=== PATIENT | female | born 1950 | race Caucasian/White ===

== ENCOUNTER → 2020-04-20 12:31 | Outpatient (CLI) | payer MEDICARE, MEDICAID, SELFPAY ==
[2020-04-20 12:46] LABS: Anion Gap 10.1 mEq/L (5-15); Blood Urea Nitrogen 23 mg/dl (7-17); Calcium 10.2 mg/dl (8.4-10.2); Carbon Dioxide 30 mmol/L (22.0-30.0); Chloride 105 mmol/L (98-107); Estimated Glomerular Filt Rate 83 ml/min (>60); GFR (African American) 100 ML/MIN (>60); Glucose 96 mg/dl (74-100); Potassium 4.1 mmoL/L (3.5-5.1); Sodium 141 mmol/L (136-145)
== END ==
PROVIDERS: PCP Family Medicine; Visit Provider Family Medicine
DX: I25.10 Atherosclerotic heart disease of native coronary artery without angina pectoris (principal)
CPT/HCPCS: 80048

== ENCOUNTER → 2020-05-22 10:08 | Outpatient (CLI) | payer MEDICARE, MEDICAID, SELFPAY ==
--- NOTE | 2020-05-22 10:09 | CA_ITS ---
APPROVED REPORT Research Physicist: GABRIEL Laterality: Bilateral Indications: due f/u Risk Factors Hypertension: Hyperlipidemia PAD Smoking Doppler Spectral Velocity Analysis ECA (R) 133.90/12.50 cm/s ECA (L) 88.60/7.70 cm/s dICA (R) 117.00/21.00 cm/s dICA (L) 142.20/38.40 cm/s Marlene (R) 337.70/56.70 cm/s Marlene (L) 103.10/20.20 cm/s pICA (R) 278.70/63.80 cm/s pICA (L) 102.10/26.00 cm/s dCCA (R) 68.40/15.40 cm/s dCCA (L) 96.40/23.50 cm/s pCCA (R) 119.40/19.30 cm/s pCCA (L) 136.40/23.50 cm/s Vert (R) 41.20/11.80 cm/s Vert (L) 65.50/16.10 cm/s ICA/CCA 4.94 ICA/CCA 1.47 Findings Duplex evaluation demonstrates stenosis of the right proximal internal carotid artery in the range of 70-99% with PSV =140 cm/sec, EDV <100 cm/sec, and IC/CC Ratio <4.0(upper end of scale) Duplex evaluation demonstrates stenosis of the left proximal internal carotid artery in the range of 50-69% with PSV =140 cm/sec, EDV <100 cm/sec, and IC/CC Ratio <4.0. Conclusion Duplex evaluation demonstrates stenosis of the right proximal internal carotid artery in the range of 70-99% with PSV =140 cm/sec, EDV <100 cm/sec, and IC/CC Ratio <4.0(upper end of scale) Duplex evaluation demonstrates stenosis of the left proximal internal carotid artery in the range of 50-69% with PSV =140 cm/sec, EDV <100 cm/sec, and IC/CC Ratio <4.0. CTA MAY CONFIRM FINDINGS Electronically signed by : Vijay DeS ouza MD 05/22/2020 17:43:28
--- NOTE | 2020-05-22 10:41 | XR_ITS ---
PROCEDURE: XR CHEST 2V CLINICAL HISTORY: copd, tobacco, lung lesion, head and neck cancer Pain following injury COMPARISON: CR XR RIBS RT 2V from 05/22/2020 FINDINGS: The cardiomediastinal silhouette and pulmonary vascularity are within normal limits. Coronary artery stents are present . COPD/emphysematous changes noted with hyperinflation. No lobar consolidation or collapse. Multiple views are obtained of the right ribs showing no obvious displaced rib fracture. IMPRESSION: COPD. No acute finding. No displaced rib fracture apparent. If symptoms persist, consider follow-up exam in 7-[address] with 3D reformats. Dictated by: Vijay De Souza MD 05/22/2020 13:08 Vijay De Souza MD in [facility] 05/22/2020 13:08
== END ==
PROVIDERS: PCP Family Medicine; Visit Provider Physician Assistant
DX: R42 Dizziness and giddiness; G89.29 Other chronic pain; I65.23 Occlusion and stenosis of bilateral carotid arteries
CPT/HCPCS: 71046; 71100; 87070; 87077; 87186; 87205; 93880

== ENCOUNTER → 2020-06-15 15:13 | Outpatient (CLI) | payer MEDICARE, MEDICAID, SELFPAY | PROVIDERS: Visit Provider Family Medicine | DX: J15.0 Pneumonia due to Klebsiella pneumoniae (principal) | CPT/HCPCS: 87205 ==

== ENCOUNTER → 2020-09-28 09:54 | Outpatient (CLI) | payer MEDICARE, MEDICAID, SELFPAY ==
--- NOTE | 2020-09-28 10:01 | XR_ITS ---
PROCEDURE: XR CHEST PORTABLE CLINICAL HISTORY: COVID OUTPATIENT Cough, smoker COMPARISON: CR XR CHEST 2V from 05/22/2020 FINDINGS: Normal heart size. Coronary artery stents noted. COPD with emphysema. No lobar consolidation or collapse. Slight increased markings left lower lobe which may be due to atelectatic or fibrotic change. Surgical clips are present in the epigastric region. IMPRESSION: No acute findings. Dictated by: Vijay De Souza MD 09/28/2020 10:28 Vijay De Souza MD in [facility] 09/28/2020 10:28
== END ==
PROVIDERS: PCP Family Medicine; Visit Provider Family Medicine
DX: Z20.822 Contact with and (suspected) exposure to COVID-19 (principal)
CPT/HCPCS: 71045; U0003

== ENCOUNTER → 2020-11-08 14:37 | Outpatient (CLI) | payer MEDICARE, MEDICAID, SELFPAY ==
[2020-11-08 14:47] LABS: Basophils # 0.1 K/mm3 (0-0.2); Eosinophils # 0.1 K/mm3 (0.0-0.4); Eosinophils % 1.5 % (0.1-12.0); Hematocrit 46.9 % (37.0-47.0); Hemoglobin 15.4 g/dL (12.2-16.2); Lymphocytes # 0.9 K/mm3 (0.7-4.5); Lymphocytes % 13.4 % (10-50); Mean Corpuscular HGB Conc 32.8 g/dL (31.8-35.4); Mean Corpuscular Hemoglobin 33.1 pg (27.0-31.2); Mean Corpuscular Volume 100.8 fl (81-99); Mean Platelet Volume 7.5 fl (7.4-10.4); Monocytes # 0.4 K/mm3 (0.1-1.0); Monocytes % 6.3 % (1.7-9.3); Neutrophils # 5.1 K/mm3 (1.8-7.8); Neutrophils % 77.9 % (37.0-80.0); Platelet Count 336 K/mm3 (142-424); Red Blood Count 4.65 M/mm3 (4.20-5.40); Red Cell Distribution Width 14.8 % (11.5-17.5); White Blood Count 6.5 K/mm3 (4.8-10.8)
[2020-11-08 14:53] LABS: Alanine Aminotransferase 16 U/L (12-78); Albumin Level 4.7 g/dl (3.5-5.0); Albumin/Globulin Ratio 1.8 (1.1-1.8); Alkaline Phosphatase 80 U/L (38-126); Anion Gap 12.2 mEq/L (5-15); Aspartate Amino Transferase 31 U/L (14-36); Bilirubin,Total 0.4 mg/dl (0.2-1.3); Blood Urea Nitrogen 18 mg/dl (7-17); Calcium 10.1 mg/dl (8.4-10.2); Carbon Dioxide 27 mmol/L (22.0-30.0); Chloride 104 mmol/L (98-107); Cholesterol 319 mg/dl (140-200); Estimated Glomerular Filt Rate 55 ml/min (>60); GFR (African American) 67 ML/MIN (>60); Globulin 2.6 g/dL (1.3-3.2); Glucose 93 mg/dl (74-100); Lipase 177 U/L (23-300); Potassium 4.2 mmoL/L (3.5-5.1); Sodium 139 mmol/L (136-145); Total Protein,Serum 7.3 g/dl (6.3-8.2); Triglycerides 175 mg/dl (30-150); VLDL Cholesterol 35 mg/dL (0-40)
[2020-11-08 15:00] LABS: Chol/HDL Ratio 2.7 (1-3.5); HDL Cholesterol 117 mg/dl (40-60)
[2020-11-08 15:04] LABS: C-Reactive Protein 0.8 mg/L (0-4); Direct LDL Cholesterol 143.28 mg/dL (100-129)
[2020-11-08 15:11] LABS: Erythrocyte Sedimentation Rate 8 mm/hr (0-30)
[2020-11-08 15:12] LABS: 25-OH Vitamin D, Total < 12.8 ng/mL (30-100)
== END ==
PROVIDERS: Visit Provider Family Medicine
DX: E03.9 Hypothyroidism, unspecified (principal); M81.0 Age-related osteoporosis without current pathological fracture; I65.23 Occlusion and stenosis of bilateral carotid arteries; R20.0 Anesthesia of skin
CPT/HCPCS: 80053; 80061; 82306; 83690; 84436; 84443; 85025; 85651; 86140

== ENCOUNTER 2020-12-23 07:17 | Emergency (ER) | payer MEDICARE, MEDICAID, SELFPAY ==
[2020-12-23 07:19] VITALS: BP 156/80; PULSE 80; RESP 16; TEMP 36.8; O2SAT 98; BMI 18.3
--- NOTE | 2020-12-23 07:34 | XR_ITS ---
PROCEDURE INFORMATION: Exam: XR Lumbosacral Spine Exam date and time: 12/23/2020 7:34 AM Age: 70 years old Clinical indication: Low back pain TECHNIQUE: Imaging protocol: XR of the lumbosacral spine. Views: 2 or 3 views. COMPARISON: No relevant prior studies available. FINDINGS: Bones/joints: Normal. No acute fracture. Normal alignment. Soft tissues: Upper abdominal and pelvic clips. Aortoiliac grafts. IMPRESSION: 1. No acute osseous abnormalities. 2. Postsurgical changes above.
--- NOTE | 2020-12-23 08:02 | HMH.EDGENADL ---
ED Disposition Clinical Impression: Low back pain Qualifiers: Chronicity: acute Back pain laterality: bilateral Sciatica presence: without sciatica Qualified Code(s): M54.5 - Low back pain Disposition: Home, Self-Care Condition on Discharge: Good Instructions: DI for Low Back Pain Additional Instructions: Continue taking your Percocet as needed. See Dr. Price in the office tomorrow. Referrals: Chavo Price MD [Primary Care Provider] - - Critical Care Critical Care Time: No Attestation: On 12/23/20, the high probability of a clinically significant, sudden or life threatening deterioration of the following system(s) required my full and direct attention, intervention and personal management. The time I documented below is in addition to time spent performing reported procedures but includes the following listed in this critical care notation. Medical Decision Making - Mario Inquiry Pt receiving controlled substance: No Mario was queried for this patient: Yes Vital Signs: 12/23/20 07:19 Temperature 98.2 F Temperature Source Oral Pulse Rate [Radial] 80 Respiratory Rate 16 Blood Pressure [Right Arm] 156/80 H Blood Pressure Mean [Right Arm] 105 Blood Pressure Position [Right Arm] Sitting 02 Sat by Pulse Oximetry 98 Oxygen Delivery Method Room Air Orders (Tests/Meds): ED MEDICATIONS Discontinued Medications Generic Name Dose Route Start Last Admin Trade Name Freq PRN Reason Stop Dose Admin Dexamethasone Sodium Phosphate 8 mg 12/23/20 08:15 12/23/20 08:24 Dexamethasone 4mg/Ml 1ml Vial IM 12/23/20 08:16 8 mg ONCE ONE Administration Ketorolac Tromethamine 30 mg 12/23/20 08:14 12/23/20 08:24 Ketorolac 60mg/2ml Vial IM 12/23/20 08:15 30 mg ONCE ONE Administration - Radiology Data #1 Image(s): L-Spine Image Reviewed: Yes I reviewed the patient's radiology image, Yes I have reviewed radiologist's interpretation PROCEDURE INFORMATION: Exam: XR Lumbosacral Spine Exam date and time: 12/23/2020 7:34 AM Age: 70 years old Clinical indication: Low back pain TECHNIQUE: Imaging protocol: XR of the lumbosacral spine. Views: 2 or 3 views. COMPARISON: No relevant prior studies available. FINDINGS: Bones/joints: Normal. No acute fracture. Normal alignment. Soft tissues: Upper abdominal and pelvic clips. Aortoiliac grafts. IMPRESSION: 1. No acute osseous abnormalities. 2. Postsurgical changes above. Medical Decision Narrative: Per Dr. Constantino, patient to be seen by Dr. Price in the office tomorrow. General Adult HPI - General Chief complaint: Back Pain/Injury Stated complaint: pain in back Time Seen by Provider: 12/23/20 08:02 Mode of Arrival: Ambulatory Limitations: No Limitations Description of Symptoms (Recalled from ER Triage Doc. by RN): to ed per pvt car with c/o rt lower back pain starting 12/08 after lifting 24 case of water at [employer]. states sudden onset of pain, but progressively getting worse. denies radiation of pain. pt states taking percocet at home with no relief of symptoms. denies incontinence of bladder or bowel - History of Present Illness HPI narrative: States that she injured her back 2 weeks ago lifting a case of water at [employer]. Complains of diffuse lower lumbar pain. Has chronic pain in her legs which is unchanged. No new numbness or weakness of the legs. No numbness of the groin. No loss of bowel or bladder control. She has Percocet at home, took 3 tablets yesterday the pain is not improving. She has not tried taking any anti-inflammatories. She has 7 Percocet left. She says she called Dr. Srivastava on Thursday, 2 days ago, and he told her to come to the emergency department. She drove herself to the emergency department. - Related Data Home Medications Medication Instructions Recorded Confirmed aspirin 81 mg tablet,delayed 81 mg PO QDAY 09/09/17 12/07/20
[2020-12-23 08:39] VITALS: BP 156/80; PULSE 80; RESP 16; TEMP 36.8; O2SAT 98
== END 2020-12-23 08:39 | disposition home or self-care (01) ==
PROVIDERS: Emergency Provider Emergency Medicine; PCP Family Medicine
DX: M54.5 Low back pain (principal); X50.0XXA Overexertion from strenuous movement or load, initial encounter; I25.10 Atherosclerotic heart disease of native coronary artery without angina pectoris; E03.9 Hypothyroidism, unspecified; E78.5 Hyperlipidemia, unspecified; I10 Essential (primary) hypertension; E11.9 Type 2 diabetes mellitus without complications; Z79.899 Other long term (current) drug therapy; F17.210 Nicotine dependence, cigarettes, uncomplicated
CPT/HCPCS: 72100; 96372; 99282

== ENCOUNTER 2021-05-12 10:26 | Emergency (ER) | payer MEDICARE, MEDICAID, SELFPAY ==
[2021-05-12 10:27] VITALS: BP 201/76; PULSE 49; RESP 16; TEMP 36.4; O2SAT 98; BMI 16.2
--- NOTE | 2021-05-12 10:42 | XR_ITS ---
PROCEDURE INFORMATION: Exam: XR Left Shoulder Exam date and time: 05/12/2021 10:42 AM Age: 71 years old Clinical indication: Pain and injury or trauma; Sprain or strain; Patient HX: Fall with left shoulder pain TECHNIQUE: Imaging protocol: XR Left shoulder. Views: 2 or more views. COMPARISON: CR XR HUMERUS LT 05/12/2021 11:20 AM FINDINGS: Bones/joints: There is no evidence of acute cortical disruption or dislocation. The glenohumeral articulation is intact. There is mild elevation of the clavicle relative to the acromion process by approximately 1.3 cm. Soft tissues: Normal. IMPRESSION: 1. No acute fracture. 2. Elevation of the distal clavicle relative to the acromion process. AC joint dislocation or instability is not excluded. Clinical correlation is recommended.
--- NOTE | 2021-05-12 10:42 | XR_ITS ---
PROCEDURE INFORMATION: Exam: XR Left Humerus Exam date and time: 05/12/2021 10:42 AM Age: 71 years old Clinical indication: Injury or trauma; Sprain or strain; Humerus; Patient HX: Fall with left upper arm pain TECHNIQUE: Imaging protocol: XR Left humerus. Views: 2 or more views. COMPARISON: CR XR CHEST PORTABLE 09/28/2020 10:20 AM FINDINGS: Bones/joints: Normal. Soft tissues: Normal. IMPRESSION: No acute findings.
--- NOTE | 2021-05-12 11:01 | HMH.EDEXTP ---
ED Disposition Clinical Impression: Sprain of left shoulder Disposition: Home, Self-Care Condition on Discharge: Good Instructions: Sprain Prescriptions: Hydrocod/Acet 5/325 mg [Buchanan 5/325mg tablet] 1 tab PO Q6HP PRN #7 tab PRN Reason: Moderate Pain Transmission Status: Received by [email or web address] Referrals: Chavo Price MD [Primary Care Provider] - Stuart Peraza MD [Staff Physician] - - Critical Care Critical Care Time: No Attestation: On 05/12/21, the high probability of a clinically significant, sudden or life threatening deterioration of the following system(s) required my full and direct attention, intervention and personal management. The time I documented below is in addition to time spent performing reported procedures but includes the following listed in this critical care notation. Medical Decision Making - Medical Records Medical records reviewed: Yes: I reviewed the patient's medical records. - Mario Inquiry Pt receiving controlled substance: Yes Mario was queried for this patient: No Risks and benefits of using a controlled substance: were discussed with pt by me Vital Signs: 05/12/21 10:27 Temperature 97.6 F Temperature Source Oral Pulse Rate [Right Radial] 49 L Respiratory Rate 16 Blood Pressure [Right Arm] 201/76 H Blood Pressure Mean [Right Arm] 117 Blood Pressure Source [Right Arm] Automatic Cuff Blood Pressure Position [Right Arm] Sitting 02 Sat by Pulse Oximetry 98 Oxygen Delivery Method Room Air Orders (Tests/Meds): ED MEDICATIONS Discontinued Medications Generic Name Dose Route Start Last Admin Trade Name Freq PRN Reason Stop Dose Admin Hydrocodone Bitart/Acetaminophen 1 tab 05/12/21 10:44 05/12/21 11:28 Hydrocodone/Apap 5/325 Mg Tablet PO 05/12/21 10:45 1 tab ONCE ONE Administration - Radiology Data #1 Image(s): Shoulder, Humerus Image Reviewed: Yes I reviewed the patient's radiology results, Yes I reviewed the patient's radiology image, Yes I have reviewed radiologist's interpretation IMPRESSION: 1. No acute fracture. 2. Elevation of the distal clavicle relative to the acromion process. AC joint dislocation or instability is not excluded. Clinical correlation is recommended. IMPRESSION: No acute findings. - Reevaluation(s) Time: 12:18 Reevaluation #1: On reevaluation, patient's pain is improved. She does have evidence of possible shoulder separation clavicle dislocation. However she appears to be moving air better after analgesics. We did place the patient in a shoulder sling. She'll follow up with orthopedic surgery. Given strict return precautions. Verbalized understanding Extremity Problem HPI - General Chief complaint: Extremity Injury, Upper Stated complaint: AO [id number] left shoulder pain,change of BP meds Time Seen by Provider: 05/12/21 10:30 Mode of Arrival: Ambulatory Limitations: No Limitations Description of Symptoms (Recalled from ER Triage Doc. by RN): Pt c/o left shoulder pain following a fall that happened on thursday after becoming dizzy from taking a new BP med that her MD prescribed. - History of Present Illness HPI Narrative: This is a 71-year-old female presenting to the emergency department with some left shoulder pain. The patient states that on Thursday she had some of her blood pressure medications adjusted. She started taking them and became dizzy. She states that she fell into the wall on Thursday. She landed on the wall hitting her left shoulder. She has been complaining of some left pain in her shoulder since then. Patient did not lose consciousness during the event. She states that the pain in her shoulder is worse when she tries to move her left arm. She is left-handed so she is noticed it more. She denies any headache or change in vision. No focal weakness. No chest pain or shortness of breath. Abdominal pain or vomiting. - Related Data Home Medications Medication Instructions O[facility]
[2021-05-12 13:00] VITALS: BP 178/92; PULSE 75; RESP 18; TEMP 36.7; O2SAT 97
== END 2021-05-12 13:01 | disposition home or self-care (01) ==
PROVIDERS: Emergency Provider Emergency Medicine; PCP Family Medicine
DX: S43.402A Unspecified sprain of left shoulder joint, initial encounter (principal); W01.0XXA Fall on same level from slipping, tripping and stumbling without subsequent striking against object, initial encounter; Y92.019 Unspecified place in single-family (private) house as the place of occurrence of the external cause; I10 Essential (primary) hypertension; E78.5 Hyperlipidemia, unspecified; E03.9 Hypothyroidism, unspecified; E11.9 Type 2 diabetes mellitus without complications; F41.9 Anxiety disorder, unspecified; F17.210 Nicotine dependence, cigarettes, uncomplicated
CPT/HCPCS: 73030; 73060; 99282

== ENCOUNTER → 2021-06-05 08:35 | Outpatient (CLI) | payer MEDICARE, MEDICAID, SELFPAY ==
--- NOTE | 2021-06-05 08:36 | CA_ITS ---
APPROVED REPORT Hospital Coder: ROSEANNE Study Quality: Technically Limited, Due to overlying bowel gas. Indications: HTN,elevated BP, Smoker, Hx-Renal artery stenosis with stents. Extensive ASCVD/PAD with >25 stents throughout her body. Risk Factors PAD Hypertension Smoking Renal Artery Doppler Origin (R) 195.7/ cm/sec Proximal (R) 240.3/ cm/sec Mid (R) 178.6/ cm/sec Distal (R) 97.7/ cm/sec Renal Aorta Ratio (R) 4.28 Segmental A. (R) / cm/sec RI: 0.77 Segmental A. Sup (R) 35.0/7.0 cm/sec Segmental A. Mid (R) 35.0/8.0 cm/sec Segmental A. Inf (R) 23.0/6.0 cm/sec Origin (L) 125.0/ cm/sec Proximal (L) 105.0/ cm/sec Mid (L) 136.9/ cm/sec Distal (L) 188.6/ cm/sec Renal Aorta Ratio (L) 3.40 Renal Measurements Kidney Size (R) 9.7x3.9 cm Cortical Thickness (R) 0.8 cm Kidney Size (L) 4.0x4.4 cm Findings An attempt was made to evaluate the abdominal aorta, the right and left renal arteries and kidneys, utilizing duplex ultrasonography and color flow doppler. This was a technically difficult and therefore limited exam due to the presence of bowel gas and abdominal movement with respiration. Unable to assess Left kidney segmental arteries due to body habitus. Duplex evaluation demonstrates greater than 60% stenosis of the right renal artery with PSV greater than 180 cm/s and/or Renal/Aortic ratio (RAR) greater than 3.5. Left kidney evaluation is non diagnostic. Velocity values suggest less than 60% stenosis of lt renal artery however this is very limited.. Conclusion An attempt was made to evaluate the abdominal aorta, the right and left renal arteries and kidneys, utilizing duplex ultrasonography and color flow doppler. This was a technically difficult and therefore limited exam due to the presence of bowel gas and abdominal movement with respiration. Unable to assess Left kidney segmental arteries due to body habitus. Duplex evaluation demonstrates greater than 60% stenosis of the right renal artery with PSV greater than 180 cm/s and/or Renal/Aortic ratio (RAR) greater than 3.5. Left kidney evaluation is non diagnostic. Velocity values suggest less than 60% stenosis of lt renal artery however this is very limited. Consider CTA for further evluation Electronically signed by : Vijay De Souza MD 06/05/2021 18:45:37
== END ==
PROVIDERS: PCP Family Medicine; Visit Provider Family Medicine
DX: I10 Essential (primary) hypertension (principal)
CPT/HCPCS: 93976

== ENCOUNTER → 2021-06-21 09:56 | Outpatient (CLI) | payer MEDICARE, MEDICAID, SELFPAY ==
--- NOTE | 2021-06-21 10:17 | CA_ITS ---
APPROVED REPORT Ripper Operator: CT Laterality: Bilateral Study Quality: Good Indications: Bruit Risk Factors Hypertension: TIA/CVA History Hyperlipidemia PAD Smoking Pt has known KELLEY, PAD Surgery/Intervention left Doppler Spectral Velocity Analysis ECA (R) 283.00/ cm/s ECA (L) 89.90/ cm/s dICA (R) 231.00/42.70 cm/s dICA (L) 96.50/27.60 cm/s Marlene (R) 203.00/49.40 cm/s Marlene (L) 77.20/18.70 cm/s pICA (R) 241.00/63.10 cm/s pICA (L) 94.80/19.30 cm/s dCCA (R) 55.40/13.10 cm/s dCCA (L) 58.90/13.30 cm/s pCCA (R) 61.60/11.80 cm/s pCCA (L) 99.50/18.30 cm/s Vert (R) 35.40/ cm/s Vert (L) 54.00/ cm/s ICA/CCA 4.35 ICA/CCA 1.64 Findings Duplex evaluation demonstrates stenosis of the right proximal internal carotid artery in the range of 70-99%. Duplex evaluation demonstrates stenosis of the right proximal internal carotid artery <20%. Duplex evaluation demonstrates antegrade flow of the bilateral Vertebral Arteries. Conclusion Duplex evaluation demonstrates stenosis of the right proximal internal carotid artery in the range of70-99%. Duplex evaluation demonstrates stenosis of the right proximal internal carotid artery <20%. Duplex evaluation demonstrates antegrade flow of the bilateral Vertebral Arteries. Electronically signed by : Vijay De Souza MD 06/21/2021 15:32:48
== END ==
PROVIDERS: PCP Family Medicine; Visit Provider Urology
DX: I65.23 Occlusion and stenosis of bilateral carotid arteries (principal)
CPT/HCPCS: 93880

== ENCOUNTER → 2021-08-23 13:19 | Outpatient (CLI) | payer MEDICARE, MEDICAID, SELFPAY ==
[2021-08-23 14:36] LABS: Benzodiazepines Screen,Urine Positive ng/ml (<200)
[2021-08-23 14:39] LABS: Opiate Screen,Urine Negative ng/ml (<300)
[2021-08-23 14:40] LABS: Phencyclidine Screen,Urine Negative ng/ml (<25)
[2021-08-23 14:52] LABS: Barbiturates Screen,Urine Negative ng/ml (<200)
[2021-08-23 15:28] LABS: Amphetamine/Metha Screen,Urine Negative ng/ml (<1000)
[2021-08-23 15:29] LABS: Cannabinoid Screen,Urine Negative ng/ml (<50)
[2021-08-23 15:32] LABS: Cocaine Screen,Urine Negative ng/ml (<300); Methadone Screen,Urine Negative ng/ml (<300)
== END ==
PROVIDERS: Visit Provider Family Medicine
DX: G89.29 Other chronic pain (principal)
CPT/HCPCS: 80305

== ENCOUNTER → 2022-02-21 13:55 | Outpatient (CLI) | payer MEDICARE, MEDICAID, SELFPAY | PROVIDERS: PCP Family Medicine; Visit Provider Family Medicine | DX: R32 Unspecified urinary incontinence (principal) | CPT/HCPCS: 87086 ==

== ENCOUNTER → 2023-02-16 23:42 | Outpatient (CLI) | payer MEDICARE, MEDICAID, SELFPAY ==
[2023-02-16 18:07] LABS: Alanine Aminotransferase 77 U/L (12-78); Albumin Level 4.4 g/dl (3.5-5.0); Albumin/Globulin Ratio 1.6 (1.1-1.8); Alkaline Phosphatase 104 U/L (38-126); Anion Gap 13.6 mEq/L (5-15); Aspartate Amino Transferase 108 U/L (14-36); Bilirubin,Total 0.4 mg/dl (0.2-1.3); Blood Urea Nitrogen 14 mg/dl (7-17); Calcium 8.9 mg/dl (8.4-10.2); Carbon Dioxide 30 mmol/L (22.0-30.0); Chloride 99 mmol/L (98-107); Cholesterol 317 mg/dl (140-200); Estimated Glomerular Filt Rate 71 ml/min (>60); GFR (African American) 85 ML/MIN (>60); Globulin 2.8 g/dL (1.3-3.2); Glucose 85 mg/dl (74-100); Potassium 3.6 mmoL/L (3.5-5.1); Sodium 139 mmol/L (136-145); Total Protein,Serum 7.2 g/dl (6.3-8.2); Triglycerides 151 mg/dl (30-150); VLDL Cholesterol 30 mg/dL (0-40)
[2023-02-16 18:12] LABS: Basophils % 0.7 % (0.1-2.0); Eosinophils # 0.1 K/mm3 (0.0-0.4); Eosinophils % 1.3 % (0.1-12.0); Hematocrit 49.7 % (37.0-47.0); Hemoglobin 15.3 g/dL (12.2-16.2); Lymphocytes # 1.1 K/mm3 (0.7-4.5); Lymphocytes % 21.5 % (10-50); Mean Corpuscular HGB Conc 30.7 g/dL (31.8-35.4); Mean Corpuscular Volume 101.1 fl (81-99); Mean Platelet Volume 9.7 fl (7.4-10.4); Monocytes # 0.4 K/mm3 (0.1-1.0); Monocytes % 7.9 % (1.7-9.3); Neutrophils # 3.4 K/mm3 (1.8-7.8); Neutrophils % 68.6 % (37.0-80.0); Platelet Count 428 K/mm3 (142-424); Red Blood Count 4.92 M/mm3 (4.20-5.40); Red Cell Distribution Width 15.5 % (11.5-17.5)
[2023-02-16 18:18] LABS: Direct LDL Cholesterol 127.27 mg/dL (100-129)
[2023-02-16 18:23] LABS: Chol/HDL Ratio 2.5 (1-3.5); HDL Cholesterol 127 mg/dl (40-60)
== END ==
PROVIDERS: PCP Family Medicine; Visit Provider Family Medicine
DX: C76.0 Malignant neoplasm of head, face and neck (principal); E03.9 Hypothyroidism, unspecified; R63.4 Abnormal weight loss; I11.9 Hypertensive heart disease without heart failure
CPT/HCPCS: 80053; 80061; 84443; 85025